=== PATIENT | male | born 1955 | race Caucasian/White ===

== ENCOUNTER → 2016-11-07 | Outpatient (CLI) | payer MEDICARE, MEDICAID ==
[~2016-11-07] MED LIST: BANZEL400 MG PO; CARAFATE1 GM PO; DIASTAT ACUDIA1 EAC1 R; DIASTAT RECTAL2.5 MG R; DILANTIN100 MG PO; DULCOLAX10 MG R; ENSURE113 GM PO; KEPPRA500 MG PO; KEPPRA750 MG PO; KLONOPIN0.5 MG PO; KLONOPIN1 MG PO; LIPITOR40 MG PO; MILK OF MA400 MG/5 M PO; MIRALAX PO527 GM/BOT PO; PROTONIX40 MG PO; REGLAN10 MG PO; SILTUSSIN100 MG/5 M PO; TRIPLE ANTIB28.35 GM TOP; TYLENOL325 MG PO; VIMPAT100 MG PO; VIMPAT200 MG PO; VITAMIN D1000 UNIT PO; ZYRTEC10 MG PO
[2016-11-07 08:04] LABS: BASOPHIL # 0.1 K/uL (0.0-0.2); BASOPHIL % 1.1 %; EOSINOPHIL # 0.2 K/uL (0.0-0.5); EOSINOPHIL % 2.6 %; HEMATOCRIT 35.3 % (37.0-53.0); HEMOGLOBIN 11.1 g/dL (12.0-17.0); IMMATURE GRANULOCYTE % 0.3 %; LYMPHOCYTE # 2.8 K/uL (0.8-4.0); LYMPHOCYTE % 38.7 %; MCH 26.4 pg (27.0-34.0); MCHC 31.4 gm/dL (32.0-36.5); MONOCYTE # 1.1 K/uL (0.0-1.0); MONOCYTE % 15.2 %; MPV 9.1 fl (9.4-12.4); NEUTROPHIL % 42.1 %; NRBC % 0 /100WBC (0-0.00); PLATELET COUNT 258 K/uL (150-450); RDW-CV 13.6 % (11.9-14.6); WBC 7.2 K/uL (4.0-11.0)
[2016-11-07 08:28] LABS: ALBUMIN 3.2 gm/dL (3.5-5.0); ALK PHOS 215 IU/L (33-138); ALT 21 IU/L (12-78); ANION GAP 10.6 (10.0-19.0); AST 23 IU/L (10-40); BLOOD UREA NITROGEN 17 mg/dL (6-24); CALCIUM 8.1 mg/dL (8.5-10.5); CHLORIDE 106 mMol/L (96-110); CO2 28 mMol/L (22-32); CREATININE 0.9 mg/dL (0.6-1.3); ESTIMATED GFR (MDRD EQUATION) > 60; POTASSIUM 4.6 mMol/L (3.7-5.1); SODIUM 140 mMol/L (135-145); TOTAL BILIRUBIN 0.2 mg/dL (0.0-1.5); TOTAL PROTEIN 6.8 g/dL (6.0-8.4)
== END | disposition disaster alternative care site (69) ==
LOC: LBETH 11-05 17:44
PROVIDERS: Specialist
DX: G40.911 Epilepsy, unspecified, intractable, with status epilepticus (principal); F73 Profound intellectual disabilities; E78.5 Hyperlipidemia, unspecified; E87.0 Hyperosmolality and hypernatremia; M81.0 Age-related osteoporosis without current pathological fracture; Z79.899 Other long term (current) drug therapy

== ENCOUNTER 2016-11-18 13:56 | Inpatient (IN) | payer MEDICARE, MEDICAID ==
[~2016-11-18] VITALS: Ht 172.7 cm; Wt 66.0 kg
--- NOTE | ~2016-11-18 | DS ---
PATIENT'S NAME: IRISH OJEDA [facility] AGE: 61 Y [address] ROOM: [id number] [place], [place] [address] LOCATION: [facility] ADMIT DATE: 11/18/2016 Discharge Summary DISCHARGE DATE: 11/20/2016 FAMILY PHYSICIAN: Joseph Smyth ATTENDING PHYSICIAN: Vibha Dickens FINAL DIAGNOSES: 1. Status epilepticus. 2. Seizure/convulsive disorder. 3. Dyslipidemia. 4. Gastroesophageal reflux disease. 5. Urinary tract infection. REASON FOR ADMISSION: The patient presented in status epilepticus, and was admitted for further evaluation and treatment. LABORATORY DATA: On admit, sodium was 142, potassium was 3.9, chloride was 108, CO2 was 18, BUN was 16, creatinine was 1.1, alkaline phosphatase was 216, AST was 12, ALT was 23, TSH was 7.16, and free T4 was 0.7. White blood cell count on admission was 13, hemoglobin was 11.2, hematocrit was 35.8, and platelet count was 307. Dilantin level on the was 10.8 and on the was 12.9. RADIOLOGY STUDIES: CT scan of the head done did not show any evidence of an acute abnormality, did have cerebellar atrophy. Chest x-ray on admission did not show any evidence of infection. Urinalysis on admission showed white blood cell count and bacteria. HOSPITAL COURSE: The patient was admitted because of the elevated white blood cell count and abnormal urine. He was started on IV Rocephin. Blood cultures obtained, did return negative. The patient was seen in consultation by the RN PERIOPERATIVE from the Neurology Service. At that time, the patient was started on Keppra, was given 1000 mg IV, and Vimpat 200 mg IV. He was given two doses of IV Keppra. The next day, the patient was improved. Speech Therapy did see him to assess his swallow, and it was felt that it was stable. Teleneurology did see the patient in consultation, and felt that it would be good to do a CT scan. The CT was done, and did not show any significant abnormalities. Adjustments were made in his doses of Vimpat and Keppra. On the morning of , he was seizure free. It was felt that he was stable for discharge. His sister did feel comfortable with the plan and agreed to discharge. DISCHARGE INSTRUCTIONS: The patient was discharged back to [facility], his regular diet, and weightbearing as tolerated. He is going to have Accu-Cheks every morning for 3 days, as one day on his renal panel, his blood sugar was PATIENT'S NAME: IRISH OJEDA [facility] AGE: 61 Y [address] ROOM: [place] [address] LOCATION: [facility] ADMIT DATE: 11/18/2016 Discharge Summary DISCHARGE DATE: 11/20/2016 FAMILY PHYSICIAN: Joseph Smyth ATTENDING PHYSICIAN: Vibha Dickens. DISCHARGE MEDICATIONS: 1. Lipitor 20 mg at bedtime. 2. Klonopin 1 mg twice daily and Klonopin 0.5 mg at 3 p.m. 3. Vimpat 200 mg three times daily at 0700, 1200, and 2100. 4. Banzel 800 mg at noon and 1200 mg twice daily. 5. Keppra 1000 mg three times daily at 0800, noon, and 2100. 6. Zyrtec 10 mg daily. 7. Milk of magnesia 30 mL every 48 hours, and then 15 mL every 48 hours p.r.n. constipation. 8. Reglan 10 mg four times daily. 9. Protonix 40 mg daily. 10. MiraLAX 17 g twice daily. 11. Carafate 1 g three times daily. 12. Dilantin 200 mg twice daily. 13. Tylenol 650 mg every six hours as needed. 14. Guaifenesin 10 mL p.o. every four hours as needed for cough and congestion. 15. Dulcolax suppository 10 mg per rectum as needed. 16. Triple antibiotic ointment to sores as needed. 17. Vitamin D 2000 units daily. 18. Ensure three times daily. 19. Diazepam 20 mg rectal suppositories as needed for seizures. 20. Keflex 250 mg three times daily for 3 days. OVERALL PROGNOSIS AT DISCHARGE: Fair. This was discussed with the sister. AMERICO BLAKE MD LAW/modl /[id number] CC: CLARISSA Birch d: 11/21/16 0226 t: 11/21/16 1921, DISCHARGE SUMMARY
--- NOTE | ~2016-11-18 | CON ---
PATIENT'S NAME: IRISH OJEDA [facility] AGE: 61 Y [address] ROOM: [id number] [place], [place] [address] LOCATION: [facility] ADMIT DATE: 11/18/2016 Consultation DISCHARGE DATE: FAMILY PHYSICIAN: Joseph Smyth ATTENDING PHYSICIAN: DAVID CASTANEDA REFERRING PHYSICIAN: SALVADOR GOYAL MD I have seen and assessed the patient with the help of ARLENE Kilgore. I agree with her assessment and findings and I have the following additional comments. The patient is a pleasant 61-year-old gentleman with history of Frankie- Gastaut, seizure disorder, and hepatic encephalopathy who presents now with recurrence of seizures. He has had no seizures since admission. He was admitted after having a seizure that lasted for at least 23 minutes and this was concerning. The patient has been on several regimen of Keppra, which he continues to have 750 mg b.i.d., Vimpat at 200 mg t.i.d., Dilantin at 300 mg once a day as well as . CT scan of the head will be obtained. I have recommended Keppra could be increased to 1000 mg b.i.d. We will obtain Dilantin level and should be subtherapeutic or near subtherapeutic. We will treat accordingly. In the meanwhile, we will continue to observe and treat as needed. I discussed all of this with the patient's family at bedside. No other recommendations otherwise. SALVADOR GOYAL MD NM/modl /[id number] d: t: 11/20/16 0850, CONSULTATION REPORT
--- NOTE | ~2016-11-18 | CON ---
PATIENT'S NAME: IRISH OJEDA [facility] AGE: 61 Y [address] ROOM: [place] [address] LOCATION: [facility] ADMIT DATE: 11/18/2016 Consultation DISCHARGE DATE: 11/20/2016 FAMILY PHYSICIAN: Joseph Smyth ATTENDING PHYSICIAN: Vibha Dickens DATE OF CONSULTATION: 11/19/2016 REFERRING PHYSICIAN: Salvador Markham MD NEUROLOGICAL CONSULTATION CHIEF COMPLAINT: Status epilepticus. HISTORY OF PRESENT ILLNESS: This 61-year-old gentleman is a patient of ours in the Neurology Clinic. We see him for seizures and manage his VNS. He has had a long history of seizure disorder since childhood secondary to measles, and also has severe intellectual disabilities. 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 He lives in [facility], where they noticed he started having more seizures than usual. He usually has one seizure a day that is alleviated by a magnetic swipe to his VNS. Yesterday, he started having approximately 10 or 11 seizures before noon and then he went into a state of status epilepticus, which was at least 45 minutes long, which was alleviated by a rectal diazepam. He is on multiple AED medications and has a VNS stimulator. At the time of our visit, he is nonverbal and somewhat somnolent, although he has passed a swallowing evaluation, and can now take his pills p.o. His history is gleaned from the clinic records. We did interrogate his VNS. It is functioning and the parameters are acceptable. REVIEW OF SYSTEMS: Review of systems cannot be obtained because of the patient's somnolent state. ALLERGIES: THE PATIENT IS ALLERGIC TO LAMOTRIGINE. PAST MEDICAL HISTORY: Significant for severe seizure disorders, intellectual disability, hyperlipidemia, GERD, and gastric ulcers. FAMILY HISTORY: His mother and father did have some lung issues. His father also had heart disease. SOCIAL HISTORY: PATIENT'S NAME: IRISH OJEDA [facility] AGE: 61 Y [address] ROOM: [address] [address] LOCATION: [facility] ADMIT DATE: 11/18/2016 Consultation DISCHARGE DATE: 11/20/2016 FAMILY PHYSICIAN: Joseph Smyth ATTENDING PHYSICIAN: Khalid,Dunne A No smoking or alcohol. Lives in [facility]. PHYSICAL EXAMINATION: VITAL SIGNS: His blood pressure is 117/67, heart rate 72, respirations 16, and he is afebrile. GENERAL: This is a somnolent, drowsy patient who is not quite back to baseline due to Ativan and postictal state. CARDIOVASCULAR: S1 and S2, without murmurs, rubs, or gallops. LUNGS: Clear to auscultation bilaterally. ABDOMEN: Soft, nontender, and nondistended. Bowel sounds are present. HEENT: His head is atraumatic and normocephalic. MUSCULOSKELETAL: He is able to move all four extremities, although he cannot follow commands. NEUROLOGIC: Pupils are equal and reactive. He is not having a seizure at this time. He is able to move both upper extremities at baseline and lower extremities are at baseline. He is nonverbal at this time, although his baseline status is only limited verbalizations. LABORATORY DATA: We did obtain a Dilantin level on this patient on November 07, and it was 10.8. We are currently doing an EEG and initial report on visualization is no epileptiform discharges. A urinalysis was done, which did show many bacteria; however, was nitrite negative. There were leukocytes in the urine also. Hematology revealed a white count of 13.0, RBC of 4.22, hemoglobin of 11.2, and platelets of 307. His differential included neutrophil at 11.2, and lymphocytes at 5.8%. His CMS did reveal a CO2 of 18, sodium of 142, potassium of 3.9, chloride of 108, glucose is 63, calcium of 8.4, albumin of 3.3, and A/G ratio of 0.8. Total bilirubin 0.2. His alkaline phosphatase was 217, AST 27, and ALT 23. His estimated GFR is greater than 60. ASSESSMENT AND PLAN: 1. Status epilepticus. We will evaluate and get another Dilantin level. He received his medications IV last night, but he has positive swallowing test, so we will go ahead and resume p.o. medications today. We will increase his Keppra to 1000 mg t.i.d. EEG has already been done, we will also get a CT scan to evaluate for any organic changes in the brain that may be causing the seizures. The plan of care was discussed with the hospitalist and with his sister. We will continue to monitor the patient moving forward. The plan of care was discussed with Dr. Markham and the patient was examined simultaneously. Thank you for this interesting consult. PATIENT'S NAME: IRISH OJEDA [facility] AGE: 61 Y [address] ROOM: [address] [address] LOCATION: [facility] ADMIT DATE: 11/18/2016 Consultation DISCHARGE DATE: 11/20/2016 FAMILY PHYSICIAN: Joseph Smyth ATTENDING PHYSICIAN: Vibha Dickens APRN FOR SALVADOR MARKHAM MD PP/gennarol /[id number] d: 11/20/161935 t: 11/28/16 1734, CONSULTATION REPORT
--- NOTE | ~2016-11-18 | NDGEN ---
PATIENT'S NAME: IRISH OJEDA [facility] AGE: 61 Y [address] ROOM: [place] [address] LOCATION: [facility] ADMIT DATE: 11/18/2016 Neurodiagnostics DISCHARGE DATE: FAMILY PHYSICIAN: Joseph Smyth ATTENDING PHYSICIAN: DAVID CASTANEDA PROCEDURE: ELECTROENCEPHALOGRAM DATE OF PROCEDURE: 11/19/2016 TEST: TECH: CLINICAL DIAGNOSIS: DURATION OF EE minutes. REASON FOR EEG: Seizures. CLINICAL HISTORY: The patient is a 61-year-old male with history of seizure disorder and intellectual disability. He lives in [facility]. Comes to the ER when he started having more seizures than baseline. He had about 10-11 seizures before noon and then went into what appeared to be status epilepticus. EEG FINDINGS: The patient is awake for 20-30% of the EEG, asleep for remaining. During the awake portions of EEG, a 7-8 hertz background was seen in the posterior head regions which is symmetrical, rhythmical, waxing and waning, is attenuated by eye opening. Activation procedures included photic stimulation between 3-30 hertz, which did not show any abnormalities. During the sleep phase, vertex waves were seen in central head regions. CLASSIFICATION: Abnormal I ( awake, asleep 10/20 scalp electrodes) 1. Background slow. IMPRESSION: This EEG shows evidence of mild diffuse encephalopathy. No epileptiform discharges or EEG seizures were seen during this recording. MD BRENDA LOVELL/modl PATIENT'S NAME: IRISH OJEDA [facility] AGE: 61 Y [address] ROOM: [place] [address] LOCATION: [facility] ADMIT DATE: 11/18/2016 Neurodiagnostics DISCHARGE DATE: FAMILY PHYSICIAN: Joseph Smyth ATTENDING PHYSICIAN: DAVID CASTANEDA /[id number] dtt: 11/21/16 1223 , JASON VIZCARRA dtd: 11/19/16 1824
--- NOTE | ~2016-11-18 | ER ---
PATIENT'S NAME: IRISH OJEDA [facility] AGE: 61 Y [address] ROOM: [place] [address] LOCATION: [facility] ADMIT DATE: 11/18/2016 ER/Outpatient Report DISCHARGE DATE: FAMILY PHYSICIAN: Joseph Smyth ATTENDING PHYSICIAN: DAVID CASTANEDA CHIEF COMPLAINT: Seizure. HISTORY OF PRESENT ILLNESS: The patient arrives by ambulance from [facility], where he resides. The patient has a history of cerebral palsy and epilepsy. He typically has one seizure a day. Today, he has had up to 12 seizures lasting between 9 and 25 minutes. There has been no return to baseline between. He received 20 mg of Diastat rectally prior to EMS arrival. No other acute issues. He does follow with a neurologist locally. By report, there have been no injuries or recent other source of infection other than possible intermittent fevers, but it is unclear if that is in fact the case. PAST MEDICAL HISTORY: Documented on the record and reviewed by me. SOCIAL HISTORY: Documented on the record and reviewed by me. MEDICATIONS: Documented on the record and reviewed by me. ALLERGIES: DOCUMENTED ON THE RECORD AND REVIEWED BY ME. REVIEW OF SYSTEMS: All systems reviewed and negative, except as noted in the HPI. PHYSICAL EXAMINATION: VITAL SIGNS: Blood pressure 96/54, pulse is 90, respiratory rate is 20, temperature is 98.2, SpO2 94% on room air. Pain is not able to be assessed. GENERAL: An age-appropriate male, resting on the exam table. Minimally responsive. NEURO: The patient rolls his eyes to painful stimulation. He is nonverbal. He is not moving, but does localize the pain. He is protecting his airway. HEENT: Normocephalic and atraumatic. Eyes are slightly dilated, but reactive bilateral. The oropharynx is clear. There is some scant dried blood. No obvious bleeding lesions. NECK: Supple. Trachea is midline. PATIENT'S NAME: IRISH OJEDA [facility] AGE: 61 Y [address] ROOM: [address] [place] [address] LOCATION: [facility] ADMIT DATE: 11/18/2016 ER/Outpatient Report DISCHARGE DATE: FAMILY PHYSICIAN: Joseph Smyth ATTENDING PHYSICIAN: DAVID CASTANEDA CHEST: Heart is regular rate and rhythm with no murmurs. LUNGS: Clear to auscultation bilateral with no rhonchi, wheezes, or rales. ABDOMEN: Soft, nontender, and nondistended. No rebound or guarding. EXTREMITIES: He has normal extremities grossly. SKIN: Appears warm, dry, and intact. LABORATORY DATA AND X-RAYS: Procalcitonin is below threshold. CMS reveals an anion gap of 19.9, creatinine 1.1. GFR is greater than 60. Alkaline phosphatase is elevated. Otherwise, LFTs and electrolytes are unremarkable. Free T4 0.7, TSH 7.16, prolactin is 93.4. White count is 13.0, hemoglobin is 11.2, and lactate is 10.4. IMPRESSION: 1. Status epilepticus resolved with prolonged postictal period. 2. Anion gap acidosis secondary to lactic acidemia secondary to #1. EMERGENCY DEPARTMENT COURSE: The patient was seen and evaluated. His mental status is as expected for a postictal individual who received 20 mg of diazepam. For a short time, he was requiring a little bit of oxygen as he would have some intermittent sonorous respirations whenever he would reposition himself. This improved significantly; however, he did not come around to his baseline after about 2 hours. He would open his eyes, he would follow commands, but was not at his baseline according to family and friends. Also, his baseline was confirmed by a worker from [facility]. For the reason of prolonged postictal period in the setting of what appears to be episode of status epilepticus, that was resolved, he will be admitted to the Hospitalist Service for further evaluation and treatment. Neurology team was contacted and will be involved in his care prior to admission to the hospital. MD KATIE TIPTON/imtiaz /[id number] d: 11/20/16 1156 t: 11/26/16 0932, OUTPATIENT REPORT
--- NOTE | ~2016-11-18 | HP ---
PATIENT'S NAME: IRISH OJEDA [facility] AGE: 61 Y [address] ROOM: [address] [place] [id number] LOCATION: [facility] ADMIT DATE: 11/18/2016 History & Physical DISCHARGE DATE: FAMILY PHYSICIAN: Joseph Smyth ATTENDING PHYSICIAN: DAVID CASTANEDA DATE OF SERVICE: CHIEF COMPLAINT: Seizure. HISTORY OF PRESENT ILLNESS: A 61-year-old gentleman with a past medical history of seizure disorder since childhood secondary to measles, intellectual disabilities, lives in [facility], presented to emergency department today when he started having more seizures than usual. He had multiple seizures approximately about 10 to 11 today before noon and then he went into what appears to be status epilepticus which was broken by rectal diazepam. He is on multiple antiepileptic medications. The patient is nonverbal at this time and is postictal, most of the history is obtained from the family, caregiver, as well as nursing staff in the emergency department. It appears that he does not communicate at all, only moans and groans. Cannot localize pain. Does feed by himself. No further meaningful history could be obtained at this point. REVIEW OF SYSTEMS: Review of systems cannot be obtained because of the patient's postictal state and nonverbal status. ALLERGIES: THE PATIENT IS ALLERGIC TO LAMOTRIGINE. PAST MEDICAL HISTORY: Significant for seizure disorder, intellectual disability, hyperlipidemia, GERD, and gastric ulcers. FAMILY HISTORY: Significant for lung issues in mom and heart disease in dad. SOCIAL HISTORY: No smoking or alcohol. Lives in [facility]. PHYSICAL EXAMINATION: VITAL SIGNS: Blood pressure 117/67, 72, 16, and afebrile. GENERAL: Postictal, drowsy, in no acute distress. CARDIOVASCULAR: S1 and S2. No murmurs, gallops, or rubs. PATIENT'S NAME: IRISH OJEDA [facility] AGE: 61 Y [address] ROOM: [id number] [place] [id number] LOCATION: [facility] ADMIT DATE: 11/18/2016 History & Physical DISCHARGE DATE: FAMILY PHYSICIAN: Joseph Smyth ATTENDING PHYSICIAN: DAVID CASTANEDA LUNGS: Clear to auscultation bilaterally. ABDOMEN: Soft, nontender, nondistended. Bowel sounds present. EXTREMITIES: No clubbing, cyanosis, or edema. HEENT: Head; atraumatic and normocephalic. MUSCULOSKELETAL: No muscle tenderness or joint swelling noted. LABORATORY DATA: Lab work done in the emergency department today showed a lactic acid of 10 which is attributed with the seizure activity. White count is elevated at 13, platelets of 307,000, and hemoglobin of 11.2. BMP was not significant except there was elevation of alkaline phosphatase. We will watch that for now. UA is pending. Prolactin was 93. Procalcitonin was less than 0.05. ASSESSMENT AND PLAN: 1. Status epilepticus, postictal right now. 2. Mental retardation. 3. Convulsive disorder. 4. Gastroesophageal reflux disease. 5. Peptic ulcer disease. At this point, we are going to start IV fluids and have patient admitted to the Neuro Trauma Unit. IV Ativan for breakthrough seizures. We will obtain Neurology consultation to determine for the laboratory work regarding his antiepileptic medications or any changes needs to be done. Deep venous thrombosis prophylaxis, Lovenox. Further course will be determined by his progress in the hospital. MD BRENDON CARSON/imtiaz /[id number] D: [id number] T: [id number] HISTORY & PHYSICAL
[2016-11-18 14:56] LABS: BASOPHIL % 0.3 %; EOSINOPHIL % 0.1 %; HEMATOCRIT 35.8 % (37.0-53.0); HEMOGLOBIN 11.2 g/dL (12.0-17.0); IMMATURE GRANULOCYTE % 0.3 %; LYMPHOCYTE # 0.8 K/uL (0.8-4.0); LYMPHOCYTE % 5.8 %; MCH 26.5 pg (27.0-34.0); MCHC 31.3 gm/dL (32.0-36.5); MCV 84.8 fl (83.0-98.0); MONOCYTE % 7.8 %; MPV 8.8 fl (9.4-12.4); NEUTROPHIL # (ANC) 11.2 K/uL (1.4-9.0); NEUTROPHIL % 85.7 %; NRBC % 0 /100WBC (0-0.00); PLATELET COUNT 307 K/uL (150-450); RBC 4.22 M/uL (4.00-6.00); RDW-CV 13.9 % (11.9-14.6)
[2016-11-18 15:31] LABS: ALBUMIN 3.3 gm/dL (3.5-5.0); ALK PHOS 216 IU/L (33-138); ALT 23 IU/L (12-78); ANION GAP 19.9 (10.0-19.0); AST 27 IU/L (10-40); BLOOD UREA NITROGEN 16 mg/dL (6-24); CALCIUM 8.4 mg/dL (8.5-10.5); CHLORIDE 108 mMol/L (96-110); CO2 18 mMol/L (22-32); CREATININE 1.1 mg/dL (0.6-1.3); ESTIMATED GFR (MDRD EQUATION) > 60; POTASSIUM 3.9 mMol/L (3.7-5.1); SODIUM 142 mMol/L (135-145); TOTAL BILIRUBIN 0.2 mg/dL (0.0-1.5); TOTAL PROTEIN 7.4 g/dL (6.0-8.4)
[2016-11-18 16:30] LABS: BILIRUBIN URINE NEGATIVE (NEGATIVE); BLOOD URINE 10 /UL (NEGATIVE); COLOR URINE YELLOW (YELLOW); GLUCOSE URINE NEGATIVE (NEGATIVE); KETONE URINE NEGATIVE (NEGATIVE); LEUKOCYTES URINE 500 /UL (NEGATIVE); NITRITE URINE NEGATIVE (NEGATIVE); PROTEIN URINE 30 mg/dL (NEGATIVE); SPEC GRAVITY URINE 1.015 (1.003-1.035); TURBIDITY URINE 2+ (CLEAR); UROBILINOGEN URINE NORMAL (NORMAL)
[2016-11-18 16:47] LABS: RBC URINE RARE #/HPF (NEGATIVE)
[2016-11-18 16:48] LABS: BACTERIA URINE MANY (NEGATIVE); EPITHELIAL URINE 0-2 #/HPF (NEGATIVE); MUCUS URINE 1+ (NEGATIVE)
[2016-11-18] MEDS ORDERED: MILK OF MA400 MG/5 M PO ×2 (17:18→17:39)
[2016-11-18] MEDS ORDERED: ZYRTEC10 MG PO (17:19)
[2016-11-18] MEDS ORDERED: VITAMIN D1000 UNIT PO (17:19)
[2016-11-18] MEDS ORDERED: PROTONIX40 MG PO (17:20)
[2016-11-18] MEDS ORDERED: BANZEL400 MG PO ×2 (17:21→17:24)
[2016-11-18] MEDS ORDERED: VIMPAT100 MG PO (17:22)
[2016-11-18] MEDS ORDERED: KEPPRA750 MG PO (17:25)
[2016-11-18] MEDS ORDERED: MIRALAX PO527 GM/BOT PO (17:25)
[2016-11-18] MEDS ORDERED: VIMPAT200 MG PO (17:26)
[2016-11-18] MEDS ORDERED: KLONOPIN1 MG PO (17:27)
[2016-11-18] MEDS ORDERED: ENSURE113 GM PO (17:28)
[2016-11-18] MEDS ORDERED: CARAFATE1 GM PO (17:28)
[2016-11-18] MEDS ORDERED: REGLAN10 MG PO (17:29)
[2016-11-18] MEDS ORDERED: LIPITOR40 MG PO (17:30)
[2016-11-18] MEDS ORDERED: KLONOPIN0.5 MG PO (17:30)
[2016-11-18] MEDS ORDERED: KEPPRA500 MG PO (17:31)
[2016-11-18] MEDS ORDERED: DILANTIN100 MG PO (17:32)
[2016-11-18] MEDS ORDERED: TYLENOL325 MG PO (17:33)
[2016-11-18] MEDS ORDERED: DULCOLAX10 MG R (17:34)
[2016-11-18] MEDS ORDERED: DIASTAT ACUDIA1 EAC1 R (17:36)
[2016-11-18] MEDS ORDERED: DIASTAT RECTAL2.5 MG R (17:39)
[2016-11-18] MEDS ORDERED: SILTUSSIN100 MG/5 M PO (17:40)
[2016-11-18] MEDS ORDERED: TRIPLE ANTIB28.35 GM TOP (17:41)
--- NOTE | 2016-11-18 18:17 | NUR ---
Patient is 61 yo male admitted from the ED this evening where he was admitted this morning with seizures. pt apparently had 11 seizures prior to 11:00 this am. he then had one after 12:00 that lasted approx 25 minutes. pt's sister was notified after pt was in the ED. She lives in [place]. Pt has saline lock in right forearm without erythema or edema noted at site. pt does not respond at this time. during interview, he did arouse a little and seemed to recognize his sister. Education was given to sister to make sure she informs staff if she thinks pt is having any pain or discomfort, vomiting, diarrhea, etc as documented. sister denies questions. pneumatics are on bilat calves, yellow socks and fall and allergy bracelets on. sister denies needs at this time. Report is given to MARIA DOLORES Rabago.
[2016-11-19 04:29] LABS: BASOPHIL % 0.5 %; EOSINOPHIL # 0.1 K/uL (0.0-0.5); EOSINOPHIL % 1.2 %; HEMATOCRIT 33.7 % (37.0-53.0); HEMOGLOBIN 10.6 g/dL (12.0-17.0); IMMATURE GRANULOCYTE % 0.2 %; LYMPHOCYTE # 2.7 K/uL (0.8-4.0); LYMPHOCYTE % 32.8 %; MCH 26.7 pg (27.0-34.0); MCHC 31.5 gm/dL (32.0-36.5); MCV 84.9 fl (83.0-98.0); MONOCYTE # 0.9 K/uL (0.0-1.0); MONOCYTE % 11.2 %; MPV 8.8 fl (9.4-12.4); NEUTROPHIL # (ANC) 4.4 K/uL (1.4-9.0); NEUTROPHIL % 54.1 %; NRBC % 0 /100WBC (0-0.00); PLATELET COUNT 253 K/uL (150-450); RBC 3.97 M/uL (4.00-6.00); RDW-CV 13.9 % (11.9-14.6); WBC 8.1 K/uL (4.0-11.0)
[2016-11-19 04:47] LABS: ANION GAP 12.9 (10.0-19.0); BLOOD UREA NITROGEN 12 mg/dL (6-24); CALCIUM 7.8 mg/dL (8.5-10.5); CHLORIDE 111 mMol/L (96-110); CO2 23 mMol/L (22-32); CREATININE 0.6 mg/dL (0.6-1.3); ESTIMATED GFR (MDRD EQUATION) > 60; POTASSIUM 3.9 mMol/L (3.7-5.1); SODIUM 143 mMol/L (135-145)
--- NOTE | 2016-11-19 05:48 | NUR ---
Significant Event: PERRLA 3.0 brisk on first assessment, and non-cooperative with eyes on last two assessments. Hypotension 99-120 systolic blood pressure, other VSS. History of cerebral palsy and admitted for seizures. New IV to L)antecubital & other IV to right forearm flushes. Thickened liquids and meds in pudding, however, unable to take anything by mouth this shift. Oral cares with swab and water/mouthwash. Sister at bedside. Follow up:
--- NOTE | 2016-11-19 12:06 | NUR ---
Introduced self and role of care management to patient and his sister. He lives at [facility] in [place]. Per his sister she plans on him returning to [facility] on discharge. Will continue to follow.
--- NOTE | 2016-11-19 18:48 | NUR ---
Significant Event: opens eyes spontaneously. alert and smiles at times. does moan at times. does not follow commands. 1 minute seizure at 0748 and again at 1300. Magnet waved over VNS by sister both times. 2mg ativan with seizure at 0748. tele with sinus tran. takes meds whole in pudding. VSS. on room air. incontinent of several voids and small BM this shift. CT of head this aftn was negative. Peripheral IV x 2 saline locked.
--- NOTE | 2016-11-20 05:36 | NUR ---
Significant Event: Patient is alert and baseline is mostly non-verbal with some mumbling. PERRLA 3.0 brisk. Unable to acquire sensation and patient unable to follow commands. VSS. Frequent repositioning and incontinence. IV to right forearm and left antecubital flush well. Honey thickened liquids and pureed diet. Takes medications whole in pudding. 2A full lift. No seizure activity this shift. Follow up:
--- NOTE | 2016-11-20 13:30 | NUR ---
Received a call from Guadalupe on [facility] stating that Dr Palomino is writing discharge orders for patient. I called and made arrangements with [facility] to pick patient up at 1430. Orders fased by Guadalupe S unit sec on [facility].
--- NOTE | 2016-11-20 14:28 | NUR ---
alert, drowsy, does not follow commands, moves spontaneously. incontinent of urine, fed self breakfast. pureed diet/nectar thick liquids. turned q2hr in bed, moans occasionally. mostly non-verbal. no seizures. sister at bedside, full lift.
== END 2016-11-20 15:17 | DRG 101 ==
LOC: GMED 13:56 → GNTU 16:26
PROVIDERS: Emergency Medicine; ADMIT Internal Medicine
DX: G40.909 Epilepsy, unspecified, not intractable, without status epilepticus (principal); K27.9 Peptic ulcer, site unspecified, unspecified as acute or chronic, without hemorrhage or perforation; N39.0 Urinary tract infection, site not specified; E78.5 Hyperlipidemia, unspecified; K21.9 Gastro-esophageal reflux disease without esophagitis; G40.901 Epilepsy, unspecified, not intractable, with status epilepticus; F79 Unspecified intellectual disabilities; Z88.8 Allergy status to other drugs, medicaments and biological substances
CPT/HCPCS: C9254; J0696; J1165; J1650; J1953; J2060; J7040; J7050

== ENCOUNTER → 2016-11-18 | Outpatient (CLI) | payer MEDICARE, MEDICAID | END | disposition disaster alternative care site (69) | LOC: GAMB 13:40 | DX: G40.409 Other generalized epilepsy and epileptic syndromes, not intractable, without status epilepticus (principal) ==